=== PATIENT | female | born 1985 | race Caucasian/White ===

== ENCOUNTER 2024-10-26 19:08 | Emergency (ER) | payer OTHER, SELFPAY ==
--- OUTSIDE RECORDS SUMMARY | 2024-10-26 19:10 | XMS_ITS | Encounter Summary ---
Author Organization [facility] Address [facility] [place] [address] Care Team Providers Care Slasher Machine Operator Name Role Phone Manuel Mcnamara MD Primary Care Provider [phone] Encounter Details Date Type Department Care Team (Late st Contact Info) Description 05/08/2021 Outerstufft Message Enc [facility] Family & Internal Medicine [address] [address] Eileen Singh, GRAIN SPOUTER Concern Social History Tobacco Use Types Packs/Day Years Used Date Smoking Tobacco: Former Cigarettes Q uit: 07/2017 Smokeless Tobacco: Never Alcohol Use Standard Drinks/Week Comments No 0 (1 standard drink = 0.6 oz pur e alcohol) AUDIT-C Answer Date Recorded Frequency of Alcohol Consumption Never 07/14/2020 Average Number of Drinks Not on file 021 Frequency of Binge Drinking Not on file 06/23 PHQ-2 Answer Date Recorded PHQ-2 Score - If the patient scores above 3, please move on to questions 3-9 2 05/07/2021 Comments No Sex and Gender Information Value Date Recorded Sex Assigned at Female 06/13/2024 11:52 AM GUN EXAMINER Legal Sex Female 8:24 PM CDT Gender Identity Female 08/09/2024 2:50 PM CDT Sexual Orientation Not on file COVID-19 Exposure Response Date Recorded In the last month, have you been in contact with someone who was confirmed or suspected to have Coronavirus / COVID-19? No / Unsure 05/07/2021 8:38 AM GUN EXAMINER documented as of this encounter Functional Status * RETIRED Are you deaf or do you have serious difficulty hearing Answer Date of Assessment Author Status No 10/11/2018 8:28 AM CDT Activ e * RETIRED Are you blind or do you have serious difficulty seeing, even when wearing glasses? Answer Date of Assessment Author Status No 10/11/2018 8:28 AM CDT Activ e * Do you have serious difficulty walking or climbing stairs? Answer Date of Assessment Author Status No 10/11/2018 8:28 AM Erin Tejada RN Active * Do you have difficulty dressing or bathing? Answer Date of Assessment Author Status No 10/11/2018 8:28 AM Erin Tejada RN Active * Because of a physical, mental, or emotional condition, do you have difficulty doing errands alone such as visiting a doctor's office or shopping? Answer Date of Assessment Author Status No 10/11/2018 8:28 AM Erin Tejada RN Active documented as of this encounter Mental Status * Because of a physical, mental, or emotional condition, do you have serious difficulty concentrating, remembering, or making decisions? Answer Entry Date Author Status No 10/11/2018 8:28 AM Erin Tejada RN Active documented in this encounter Plan of Treatment Not on file documented as of this encounter Visit Diagnoses Not on filedocumented in this encounter Additional Health Concerns Infection Onset Date Last Indicated Resolved Time C. difficile 05/13/2018 05/13/2018 ESBL - Extended Spectrum Beta-lactamase 05/13/2018 05/13/2018 VRE 05/13/2018 05/13/2018 MRSA 05/13/2018 05/13/2018 COVID-19 Rule Out 05/23/2023 05/23/2023 05/23/2023 12:01 PM GUN EXAMINER COVID-19 Rule Out 06/22/2024 06/22/2024 06/22/2024 12:24 PM GUN EXAMINER Respiratory Rule Out 06/22/2024 06/22/2024 025 12:12 PM GUN EXAMINER Assessment Noted Time PHQ-9 Depression Total Score: 2 05/07/19 22 8:56 AM GUN EXAMINER documented as of this encounter Care Teams Slasher Machine Operator Relationship Specialty [place] [address] [place] [address] PCP - General FAMILY PRACTICE 05/30/18 documented as of this encounter
[2024-10-26 19:11] VITALS: BP 135/87; PULSE 86; RESP 20; TEMP 36.7; O2SAT 97
--- OUTSIDE RECORDS SUMMARY | 2024-10-26 19:11 | XMS_ITS | Encounter Summary ---
Author Organization [facility] Address [facility] [place] [address] Care Team Providers Care Automotive Center Manager Name Role Phone Manuel Mcnamara MD Primary Care Provider [phone] Encounter Details Date Type Department Care Team (Late st Contact Info) Description 05/12/2023 NaiKun Wind Developmentt Message Enc [facility] Medical Group Family & Internal Medicine [facility] [address] [place] [phone] [place] [id number] [place] [address] Medical Social History Tobacco Use Types Packs/Day Years Used Date Smoking Tobacco: Former Cigarettes Q uit: 07/23/2017 Smokeless Tobacco: Never Alcohol Use Standard Drinks/Week Comments No 0 (1 standard drink = 0.6 oz pur e alcohol) AUDIT-C Answer Date Recorded Frequency of Alcohol Consumption Never 07/14/2020 Average Number of Drinks Not on file 021 Frequency of Binge Drinking Not on file 06/23 PHQ-2 Answer Date Recorded Patient Health Questionnaire-2 Score 6 09/13/2022 Comments No Sex and Gender Information Value Date Recorded Sex Assigned at Female 06/13/2024 11:52 AM LAMINATION SPINNER Legal Sex Female 8:24 PM CDT Gender Identity Female 08/09/2024 2:50 PM CDT Sexual Orientation Not on file documented as of this encounter Functional Status [...] Author Status No 10/11/2018 8:28 AM CDT Erin Reece RN Active * Do you have difficulty dressing or bathing? Answer Date of Assessment Author Status No 10/11/2018 8:28 AM CDT Erin Reece RN Active * Because of a physical, mental, or emotional condition, do you have difficulty doing errands alone such as visiting a doctor's office or shopping? Answer Date of Assessment Author Status No 10/11/2018 8:28 AM SUMANT Erin Reece RN Active documented as of this encounter Mental Status * Because of a physical, mental, or emotional condition, do you have serious difficulty concentrating, remembering, or making decisions? Answer Entry Date Author Status No 10/11/2018 8:28 AM CDT Erin Reece RN Active documented in this encounter Plan of Treatment Not on file documented as of this encounter Visit Diagnoses Not on filedocumented in this encounter Additional Health Concerns Infection Onset Date Last Indicated Resolved Time C. difficile 05/13/2018 05/13/2018 ESBL - Extended Spectrum Beta-lactamase 05/13/2018 05/13/2018 VRE 05/13/2018 05/13/2018 MRSA 05/13/2018 05/13/2018 COVID-19 Rule Out 05/23/2023 05/23/2023 05/23/2023 12:01 PM LAMINATION SPINNER COVID-19 Rule Out 06/22/2024 06/22/2024 06/22/2024 12:24 PM LAMINATION SPINNER Respiratory Rule Out 06/22/2024 06/22/2024 025 12:12 PM LAMINATION SPINNER Assessment Noted Time PHQ-9 Depression Total Score: 21 023 1:22 PM CDT documented as of this encounter Care Teams Automotive Center Manager Relationship Specialty [place] [address] [place] [address] PCP - General FAMILY PRACTICE 05/30/18 documented as of this encounter
--- OUTSIDE RECORDS SUMMARY | 2024-10-26 19:11 | XMS_ITS | Clinical Summary ---
Author Organization [facility] Address [address] [place] [address] Care Team Providers Care Refrigerator Car Icer Name Role Phone Goldie Mcnamara MD Primary Care Provider [phone] Allergies Active Allergy Reactions Criticality Noted Date Comments Zeoxmafmc-Rsbbwzoanl-Qm-Apap Palpitations,Redness Low 03/30/2012 Sxkeghnxkygacfn-Wt-Vd-Apap Palpitations,Redness Low 03/30/2012 Medications sertraline (ZOLOFT) 100 MG tabletIndication s:Recurrent major depressive disorder, in partial remission,Severe anxiety Take 1 tablet (100 mg total) by mouth daily. 90 tablet 1 5 Active hydrocortisone 2.5 % cream Apply topically 2 (two) times daily. 3.5 g 5 Active celecoxib (CELEBREX) 200 MG capsuleIndicatio ns:Pain of right heel Take 1 capsule (200 mg total) by mouth daily. 30 capsule 2 5 Active omeprazole (PRILOSEC) 20 MG capsuleIndicatio ns:Gastroesophag eal reflux disease without esophagitis Take 1 capsule (20 mg total) by mouth 2 (two) times daily. 180 capsule 1 5 Active hydrocortisone 2.5 % cream Apply topically 2 (two) times daily. 28 g 5 Active Active Problems Problem Noted Date Diagnosed Date Moderately severe depression 05/24/2022 Cervical muscle pain 03/01/2022 Obesity (BMI 30-39.9) 12/24/2021 Gastroesophageal reflux disease without esophagi tis 12/24/2021 Severe anxiety 11/20/2021 Recurrent major depressive disorder, in partial remission 11/20/2021 Overweight (BMI 25.0-29.9) 11/09/2021 Vaginal delivery ([facility]) 10/11/2018 Resolved Problems Problem Noted Date Diagnosed Date Resolved Date ([facility]) 10/11/2018 10/13/19 19 Encounters Date Type Department Care Team Description 09/07/2024 6:05 PM CDT - 09/07/2024 6:46 PM CDT Emergency [facility] Emergency Room [address] [place] [address] Zara De MD Rash Discharge Disposition: Home or Self Care (Routine Discharge) 09/07/2024 Travel 08/13/2024 Telephone [facility] [address] [phone] Goldie Mcnamara MD Medication Information 08/12/2024 Orders Only [facility] [address] [phone] Goldie Mcnamara MD 08/09/2024 3:30 PM CDT - 08/09/2024 11:59 PM CDT Hospital Encounter [facility] [address] [place] [address] Goldie Mcnamara MD Discharge Disposition: Home or Self Care (Routine Discharge) 08/09/2024 3:00 PM CDT Office Visit [facility] [address] [phone] Goldie Mcnamara MD Foot Pain 08/09/2024 Results Follow-Up [address] [phone] Goldie Mcnamara MD XR HEEL RT MIN 2V 08/09/2024 Travel 07/30/2024 7:09 PM CDT - 07/30/2024 7:37 PM CDT Emergency [facility] Emergency Room [address] [place] [address] Chris Kamara MD Derm Problem Discharge Disposition: Home or Self Care (Routine Discharge) 07/30/2024 Travel from Last 3 Months Immunizations Immunization Administration Dates Next Due Dtap (Generic) 06/24/2018 Fluzone 6 Months+ Quad (0.5 mL Prefilled Syringe) 03/10/2021,03/10/2020,02/14/2019 Influenza Adult (Generic) 02/14/2019 Opv 08/16/1994 PFIZER COVID-19 (ORIGINAL FO RMULATION, PURPLE CAP) mRNA, LNP-S, PF, 30 MCG/0.3 ML DOSE 11/09/2020,10/19/2020 Tdap (Generic) 06/24/2018,02/09/2010 Family History Medical History Relation Comments Diabetes Father Hyperlipidemia Father Hypertension Father Hyperlipidemia Mother Relation Status Comments Father Mother Alive Social History Tobacco Use Types Packs/Day Years Used Date Smoking Tobacco: Former Cigarettes Q uit: 07/23/2017 Passive Smoke Exposure: Past Smokeless Tobacco: Never Tobacco Cessation:Counseling Given: No Alcohol Use Standard Drinks/Week Comments No 0 (1 standard drink = 0.6 oz pur e alcohol) AUDIT-C Answer Date Recorded Frequency of Alcohol Consumption Never 07/14/2020 Average Number of Drinks Not on file 021 Frequency of Binge Drinking Not on file 06/23 PHQ-2 Answer Date Recorded Patient Health Questionnaire-2 Score 0 08/09/2024 Comments No Sex and Gender Information Value Date Recorded Sex Assigned at Female 06/13/2024 11:52 AM CLERICAL CLERK Legal Sex Female 8:24 PM CDT Gender Identity Female 08/09/2024 2:50 PM CDT Sexual Orientation Not on file Last Filed Vital Signs Vital Sign Reading Time Taken Comments Blood Pressure 126/74 09/07/2024 6:12 PM CDT Pulse 77 09/07/2024 6:12 PM CDT Temperature 36.7 C (98 F) 09/07/2024 6:12 PM CDT Respiratory Rate 18 09/07/2024 6:12 PM CDT Oxygen Saturation 99% 09/07/2024 6:12 PM CDT Inhaled Oxygen Concentration - - Weight 73 kg (161 lb) 09/07/2024 6:12 PM CDT Height 157.5 cm (5' 2) 09/07/2024 6:12 PM CDT Body Mass Index 29.45 09/07/2024 6:12 PM CDT Plan of Treatment Health Maintenance Due Date Last Done Comments Cervical Cancer Screening Pa p Smear (Age 30 to 64) Every 3 Years 1984 Hepatitis C 2002 Hepatitis B Vaccines (1 of 3 - 19+ 3-dose series) 08/30/2003 Cervical Cancer Screening Pa p with HPV Testing (Age 30 to 64) Every 5 Years 2014 Cervical Cancer Screening wi th HPV 2014 Annual Physical 05/07/2022 05/07/2021 COVID-19 Vaccine (3 - 2023-2 5 season) 2023 11/09/2020, 10/19/2020 Mammogram Screening 2024 DTaP, Tdap and Td Vaccines ( 4 - Td or Tdap) 06/24/2028 06/24/2018, 06/24/2018, 02/09/2010 PHQ-2 (Physician Pilgrim) Completed 08/09/2024 HPV Vaccines Aged Out No longer eligi ble based on patient's age to complete this topic Meningococcal B Vaccine Aged Out No l onger eligible based on patient's age to complete this topic Meningococcal Vaccine Aged Out No levon nolberto eligible based on patient's age to complete this topic Pneumococcal Vaccine: Pediatrics (0 to 5 Years) and At-Risk Patients (6 to 49 Years) Aged Out No longer eligible b ased on patient's age to complete this topic RSV Immunizations Under 20 Months Aged Out No longer eligible b ased on patient's age to complete this topic Procedures Procedure Name Priority Date/Time Associated Diagnosis Comments XR HEEL RT MIN 2V Routine 08/09/2024 3:4 0 PM CDT Pain of right heel from Last 3 Months Results * XR HEEL RT MIN 2V (08/09/2024 3:40 PM CDT) Anatomical Region Laterality Modality Foot Radiographic Trinh ging 08/09/2024 3:50 PM CDT Impressions 08/09/2024 3:51 PM CDT IMPRESSION: No acute abnormality identified. Ordered By: GOLDIE MCNAMARA Interpreted By: Maciej Self MD, 08/09/2024 3:50 PM Narrative 08/09/2024 3:51 PM CDT [facility] [address] [place] [address] Examination: XR HEEL RT MIN 2V Exam time: 08/09/2024 3:35 PM Clinical history: Medial heel pain for 6 months. No known injury. Comparison: No prior exam Technique: Axial lateral views Findings: Tibiotalar and subtalar joints appear unremarkable. No evidence of fracture or acute osseous abnormality involving the calcaneus. Minimal plantar calcaneal enthesophyte. No evidence of abnormal soft tissue densities. Procedure Note Maciej Self MD - 08/09/2024 [facility] [address] [place] [address] Examination: XR HEEL RT MIN 2V Exam time: 08/09/2024 3:35 PM Clinical history: Medial heel pain for 6 months. No known injury. Comparison: No prior exam Technique: Axial lateral views Findings: Tibiotalar and subtalar joints appear unremarkable. No evidenceof fracture or acute osseous abnormality involving the calcaneus. Minimalplantar calcaneal enthesophyte. No evidence of abnormal soft tissuedensities. IMPRESSION: No acute abnormality identified. Ordered By: GOLDIE MCNAMARA Interpreted By: Maciej Self MD, 08/09/2024 3:50 PM us Goldie Mcnamara MD GENERAL IMAGING Final Resul t from Last 3 Months Additional Health Concerns Infection Onset Date Last Indicated C. difficile 05/13/2018 05/13/2018 ESBL - Extended Spectrum Beta-lactamase 05/13/19 19 05/13/2018 VRE 05/13/2018 05/13/2018 MRSA 05/13/2018 05/13/2018 Insurance [employer] Care Teams Refrigerator Car Icer Relationship Specialty [place] [address] [place] [address] PCP - General FAMILY PRACTICE 05/30/18
--- OUTSIDE RECORDS SUMMARY | 2024-10-26 19:11 | XMS_ITS | Encounter Summary ---
Author Organization [facility] Address [facility] [place] [address] Care Team Providers Care Copywriting Intern Name Role Phone Manuel Mcnamara MD Primary Care Provider [phone] Encounter Details Date Type Department Care Team (Late st Contact Info) Description 07/07/2023 MyCBiancaMedt Message Enc [facility] Family & Internal Medicine [facility] [phone] [place] [phone] [place] Mcnamara [place] [id number] [place] [address] Medical Social History Tobacco Use Types Packs/Day Years Used Date Smoking Tobacco: Former Cigarettes Q uit: 07/23/2017 Passive Smoke Exposure: Past Smokeless Tobacco: Never Alcohol Use Standard Drinks/Week Comments No 0 (1 standard drink = 0.6 oz pur e alcohol) AUDIT-C Answer Date Recorded Frequency of Alcohol Consumption Never 07/14/2020 Average Number of Drinks Not on file 021 Frequency of Binge Drinking Not on file 06/23 PHQ-2 Answer Date Recorded Patient Health Questionnaire-2 Score 6 06/23/2023 Comments No Sex and Gender Information Value Date Recorded Sex Assigned at Female 06/13/2024 11:52 AM FEED WEIGHER Legal Sex Female 8:24 PM CDT Gender [...] 05/13/2018 MRSA 05/13/2018 05/13/2018 COVID-19 Rule Out 06/22/2024 06/22/2024 06/22/2024 12:24 PM FEED WEIGHER Respiratory Rule Out 06/22/2024 06/22/2024 025 12:12 PM FEED WEIGHER Assessment Noted Time PHQ-9 Depression Total Score: 024 2:17 PM FEED WEIGHER documented as of this encounter Care Teams Copywriting Intern Relationship Specialty [place] [address] [place] [address] PCP - General FAMILY PRACTICE 05/30/18 documented as of this encounter
--- OUTSIDE RECORDS SUMMARY | 2024-10-26 19:11 | XMS_ITS | Encounter Summary ---
Author Organization [facility] Address Replaced by [facility] [place] [address] Care Team Providers Care Power Truck Driver Name Role Phone Manuel Mcnamara MD Primary Care Provider [phone] Encounter Details Date Type Department Care Team (Late st Contact Info) Description 06/21/2024 MyCLightspeed Audio Labst Message Enc [facility] Medical Group Family & Internal Medicine [facility] [address] [place] [phone] Manuel Mcnamara [place] [id number] [place] [address] Influenza A Social History Tobacco Use Types Packs/Day Years [...] Sex Assigned at Female 06/13/2024 11:52 AM FLATTENING MACHINE OPERATOR Legal Sex Female 8:24 PM CDT Gender [...] 8:28 AM Erin Tejada RN Active * Calculated C-SSRS Risk Score (Lifetime/Recent) Answer Date of Assessment Author Status No Risk Indicated 06/22/2024 11:34 AM Sarah Martinez RN Active * Alexander Suicide Severity Rating Scale (Screener/Recent Self-Report) Question Answer Date of Assessment Author Status 1. Wish to be (Past 1 Month) No 06/22/2024 11:34 AM Sushila Martinez RN Acti ve 2. Non-Specific Active Suicidal Thoughts (Past 1 Month) No 06/22/2024 11:34 AM Sushila Martinez RN Acti ve 6. Suicidal Behavior (Lifetime) No 06/22/2024 11:34 AM Sushila Martinez RN Acti ve documented as of this encounter Mental Status [...] Rule Out 06/22/2024 06/22/2024 06/22/2024 12:24 PM FLATTENING MACHINE OPERATOR Respiratory Rule Out 06/22/2024 06/22/2024 025 12:12 PM FLATTENING MACHINE OPERATOR Assessment Noted Time PHQ-9 Depression Total Score: 20 024 2:17 PM FLATTENING MACHINE OPERATOR documented as of this encounter Care Teams Power Truck Driver Relationship Specialty [place] [address] [place] [address] PCP - General FAMILY PRACTICE 05/30/18 documented as of this encounter
--- OUTSIDE RECORDS SUMMARY | 2024-10-26 19:11 | XMS_ITS | Encounter Summary ---
Author Organization [facility] Address [facility] [place] [address] Care Team Providers Care Wedger Machine Name Role Phone Manuel Mcnamara MD Primary Care Provider [phone] Encounter Details Date Type Department Care Team (Late st Contact Info) Description 11/06/2023 MyCopenPeoplet Message Enc [facility] Medical Group Family & Internal Medicine [facility] [id number] [place] [phone] [place]namara [place] [id number] [place] [address] Oral infection Social History Tobacco Use Types Packs/Day Years [...] Sex Assigned at Female 06/13/2024 11:52 AM DIRECTOR FIXED INCOME Legal Sex Female 8:24 PM CDT Gender [...] AM CDT Erin Reece RN Active documented as of this encounter Mental Status * Because of a physical, mental, or emotional condition, do you have serious difficulty concentrating, remembering, or making decisions? Answer Entry Date Author Status No 10/11/2018 8:28 AM CDT Erin Reece RN Active documented in this encounter Progress Notes * Genna Davila MA - 11/06/2023 3:14 PM CDT Printed to discuss with dr documented in this encounter Plan of Treatment Not on file documented as of this encounter Visit Diagnoses Not on filedocumented in this encounter Additional Health Concerns Infection Onset Date Last Indicated Resolved Time C. difficile 05/13/2018 05/13/2018 ESBL - Extended Spectrum Beta-lactamase 05/13/2018 05/13/2018 VRE 05/13/2018 05/13/2018 MRSA 05/13/2018 05/13/2018 COVID-19 Rule Out 06/22/2024 06/22/2024 06/22/2024 12:24 PM DIRECTOR FIXED INCOME Respiratory Rule Out 06/22/2024 06/22/2024 025 12:12 PM DIRECTOR FIXED INCOME Assessment Noted Time PHQ-9 Depression Total Score: 20 024 2:17 PM DIRECTOR FIXED INCOME documented as of this encounter Care Teams Wedger Machine Relationship Specialty [place] [address] [place] [address] PCP - General FAMILY PRACTICE 05/30/18 documented as of this encounter
--- OUTSIDE RECORDS SUMMARY | 2024-10-26 19:11 | XMS_ITS | Encounter Summary ---
Author Organization [facility] Address [facility] [place] [address] Care Team Providers Care Dormitory Keeper Name Role Phone Manuel Mcnamara MD Primary Care Provider [phone] Encounter Details Date Type Department Care Team (Late st Contact Info) Description 05/09/2021 Octaviant Message Enc [facility] Medical Group Family & Internal Medicine [address] [phone] Eileen Singh, TYESHA Concerned Social History Tobacco Use Types Packs/Day Years [...] Sex Assigned at Female 06/13/2024 11:52 AM DEVOPS DEVELOPER Legal Sex Female 8:24 PM CDT Gender Identity Female 08/09/2024 2:50 PM CDT Sexual Orientation Not on file COVID-19 Exposure Response Date Recorded In the last month, have you been in contact with someone who was confirmed or suspected to have Coronavirus / COVID-19? No / Unsure 05/07/2021 8:38 AM DEVOPS DEVELOPER documented as of this encounter Functional Status [...] Rule Out 05/23/2023 05/23/2023 05/23/2023 12:01 PM DEVOPS DEVELOPER COVID-19 Rule Out 06/22/2024 06/22/2024 06/22/2024 12:24 PM DEVOPS DEVELOPER Respiratory Rule Out 06/22/2024 06/22/2024 025 12:12 PM DEVOPS DEVELOPER Assessment Noted Time PHQ-9 Depression Total Score: 2 05/07/19 22 8:56 AM DEVOPS DEVELOPER documented as of this encounter Care Teams Dormitory Keeper Relationship Specialty [place] [address] [place] [address] PCP - General FAMILY PRACTICE 05/30/18 documented as of this encounter
--- OUTSIDE RECORDS SUMMARY | 2024-10-26 19:11 | XMS_ITS | Encounter Summary ---
Author Organization [facility] Address [facility] [place] [address] Care Team Providers Care Clutch Specialist Name Role Phone Manuel Mcnamara MD Primary Care Provider [phone] Encounter Details Date Type Department Care Team (Late st Contact Info) Description 08/12/2022 Extremis Technologyt Message Enc [facility] Medical Group Family & Internal Medicine [facility] [address] [place] [phone] Vanessa Quarles, TYESHA [address] [facility] [address] [facility] [place] [address] Concern Social History Tobacco Use Types Packs/Day [...] Answer Date Recorded Patient Health Questionnaire-2 Score 5 08/15/2022 Comments No Sex and Gender Information Value Date Recorded Sex Assigned at Female 06/13/2024 11:52 AM PRACTICE SUPPORT SPECIALIST Legal Sex Female 8:24 PM CDT Gender Identity Female 08/09/2024 2:50 PM CDT Sexual Orientation Not on file COVID-19 Exposure Response Date Recorded In the last 10 days, have yo u been in contact with someone who was confirmed or suspected to have Coronavirus/COVID-19? No / Unsure 08/15/2022 12:47 PM CDT documented as of this encounter Functional Status [...] AM CDT Erin Reece RN Active * Over the past 2 weeks, how often have you been bothered by any of the following problems? Question Answer Date of Assessment Author Status Little interest or pleasure in doing things More than half the days 08/15/2022 1:10 PM CDT Bravo Chan MA Active Feeling down, depressed, or hopeless Nearly every day 08/15/2022 1:10 PM CDT Bravo Chan MA Active Patient Health Questionnaire-2 Score 5 08/15/2022 1:10 PM CDT Bravo Chan MA Active * Question Answer Date of Assessment Author Status Trouble falling or staying asleep, or sleeping too much Nearly every day 08/15/2022 1:10 PM CDT Bravo Chan MA Active Feeling tired or having little energy Nearly every day 08/15/2022 1:10 PM CDT Bravo Chan MA Active Poor appetite or overeating More than half the days 08/15/2022 1:10 PM CDT Bravo Chan MA Active Feeling bad about yourself - or that you are a failure or have let yourself or your family down Nearly every day 08/15/2022 1:10 PM Bravo Man MA Active Trouble concentrating on things, such as reading the newspaper or watching television Not at all 08/15/2022 1:10 PM Bravo Man MA Active Moving or speaking so slowly that other people could have noticed? Or the opposite - being so fidgety or restless that you have been moving around a lot more than usual. More than half the days 08/15/2022 1:10 PM Bravo Man MA Active Thoughts that you would be better off or hurting yourself in some way Not at all 08/15/2022 1:10 PM Bravo Man MA Active Patient Health Questionnaire-9 Score 18 08/15/2022 1:10 PM Bravo Man MA Active * If you checked off any problems on this questionnaire so far, Question Answer Date of Assessment Author Status How difficult have these problems made it for you to do your work, take care of things at home, or get along with other people? Very difficult 08/15/2022 1:10 PM Bravo Man MA Active documented as of this encounter Mental [...] Rule Out 05/23/2023 05/23/2023 05/23/2023 12:01 PM PRACTICE SUPPORT SPECIALIST COVID-19 Rule Out 06/22/2024 06/22/2024 06/22/2024 12:24 PM PRACTICE SUPPORT SPECIALIST Respiratory Rule Out 06/22/2024 06/22/2024 025 12:12 PM PRACTICE SUPPORT SPECIALIST Assessment Noted Time PHQ-9 Depression Total Score: 19 023 9:12 AM PRACTICE SUPPORT SPECIALIST documented as of this encounter Care Teams Clutch Specialist Relationship Specialty [place] [address] [place] [address] PCP - General FAMILY PRACTICE 05/30/18 documented as of this encounter
--- OUTSIDE RECORDS SUMMARY | 2024-10-26 21:04 | XMS_ITS | Encounter Summary ---
Author Organization [facility] Address [facility] [place] [address] Care Team Providers Care Longwall Headgate Operator Name Role Phone Manuel Mcnamara MD Primary Care Provider [phone] Encounter Details Date Type Department Care Team (Late st Contact Info) Description 08/12/2022 Symplert Message Enc [facility] Medical Group Family & Internal Medicine [facility] [phone] [place] [phone] Vanessa Quarles, TYESHA [address] [facility] [address] [facility] [place] [address] Concern Social History Tobacco Use [...] Sex Assigned at Female 06/13/2024 11:52 AM BRIDGE OPENER Legal Sex Female 8:24 PM CDT Gender [...] Rule Out 05/23/2023 05/23/2023 05/23/2023 12:01 PM BRIDGE OPENER COVID-19 Rule Out 06/22/2024 06/22/2024 06/22/2024 12:24 PM BRIDGE OPENER Respiratory Rule Out 06/22/2024 06/22/2024 025 12:12 PM BRIDGE OPENER Assessment Noted Time PHQ-9 Depression Total Score: 19 023 9:12 AM BRIDGE OPENER documented as of this encounter Care Teams Longwall Headgate Operator Relationship Specialty [place] [address] [place] [address] PCP - General FAMILY PRACTICE 05/30/18 documented as of this encounter
--- OUTSIDE RECORDS SUMMARY | 2024-10-26 21:04 | XMS_ITS | Encounter Summary ---
Author Organization [facility] Address [facility] [place] [address] Care Team Providers Care Director Of People Name Role Phone Manuel Mcnamara MD Primary Care Provider [phone] Encounter Details Date Type Department Care Team (Late st Contact Info) Description 05/08/2021 Anket Message Enc [facility] Medical Group Family & Internal Medicine [address] [phone] Eileen Singh, FOUR ROLL CALENDER OPERATOR Concern Social History Tobacco Use Types Packs/Day [...] Sex Assigned at Female 06/13/2024 11:52 AM VAT PACKER Legal Sex Female 8:24 PM CDT Gender Identity Female 08/09/2024 2:50 PM CDT Sexual Orientation Not on file COVID-19 Exposure Response Date Recorded In the last month, have you been in contact with someone who was confirmed or suspected to have Coronavirus / COVID-19? No / Unsure 05/07/2021 8:38 AM VAT PACKER documented as of this encounter Functional Status [...] Rule Out 05/23/2023 05/23/2023 05/23/2023 12:01 PM VAT PACKER COVID-19 Rule Out 06/22/2024 06/22/2024 06/22/2024 12:24 PM VAT PACKER Respiratory Rule Out 06/22/2024 06/22/2024 025 12:12 PM VAT PACKER Assessment Noted Time PHQ-9 Depression Total Score: 2 05/07/19 22 8:56 AM VAT PACKER documented as of this encounter Care Teams Director Of People Relationship Specialty [place] [address] [place] [address] PCP - General FAMILY PRACTICE 05/30/18 documented as of this encounter
--- OUTSIDE RECORDS SUMMARY | 2024-10-26 21:04 | XMS_ITS | Encounter Summary ---
Author Organization [facility] Address [facility] [place] [address] Care Team Providers Care Nurse Substance Abuse Name Role Phone Manuel Mcnamara MD Primary Care Provider [phone] Encounter Details Date Type Department Care Team (Late st Contact Info) Description 05/09/2021 Coinsettert Message Enc [facility] Medical Group Family & Internal Medicine [address] [phone] Eileen Singh, TYESHA Concerned Social [...] Sex Assigned at Female 06/13/2024 11:52 AM CPAS Legal Sex Female 8:24 PM CDT Gender Identity Female 08/09/2024 2:50 PM CDT Sexual Orientation Not on file COVID-19 Exposure Response Date Recorded In the last month, have you been in contact with someone who was confirmed or suspected to have Coronavirus / COVID-19? No / Unsure 05/07/2021 8:38 AM CPAS documented as of this encounter Functional Status [...] Rule Out 05/23/2023 05/23/2023 05/23/2023 12:01 PM CPAS COVID-19 Rule Out 06/22/2024 06/22/2024 06/22/2024 12:24 PM CPAS Respiratory Rule Out 06/22/2024 06/22/2024 025 12:12 PM CPAS Assessment Noted Time PHQ-9 Depression Total Score: 2 05/07/19 22 8:56 AM CPAS documented as of this encounter Care Teams Nurse Substance Abuse Relationship Specialty [place] [address] [place] [address] PCP - General FAMILY PRACTICE 05/30/18 documented as of this encounter
--- OUTSIDE RECORDS SUMMARY | 2024-10-26 21:05 | XMS_ITS | Encounter Summary ---
Author Organization [facility] Address [facility] [place] [address] Care Team Providers Care Note Teller Name Role Phone Manuel Mcnamara MD Primary Care Provider [phone] Encounter Details Date Type Department Care Team (Late st Contact Info) Description 07/07/2023 [email or web address] Message Enc [facility] Medical Group Family & Internal Medicine [facility] [phone] [place] [phone] Manuel Mcnamara [place] [id number] [place] [address] Medical Social History Tobacco Use Types [...] Sex Assigned at Female 06/13/2024 11:52 AM MUD TANK OPERATOR Legal Sex Female 8:24 PM CDT [...] Rule Out 06/22/2024 06/22/2024 06/22/2024 12:24 PM MUD TANK OPERATOR Respiratory Rule Out 06/22/2024 06/22/2024 025 12:12 PM MUD TANK OPERATOR Assessment Noted Time PHQ-9 Depression Total Score: 024 2:17 PM MUD TANK OPERATOR documented as of this encounter Care Teams Note Teller Relationship Specialty [place] [address] [place] [address] PCP - General FAMILY PRACTICE 05/30/18 documented as of this encounter
--- OUTSIDE RECORDS SUMMARY | 2024-10-26 21:05 | XMS_ITS | Clinical Summary ---
Author Organization [facility] Address [address] [place] [address] Care Team Providers Care Chromosomal Disorders Counselor Name Role Phone Goldie Mcnamara MD Primary Care Provider [phone] Allergies Active Allergy Reactions Criticality Noted Date Comments Omtvihxqy-Fkquzzsrpw-Zb-Apap Palpitations,Redness Low 03/30/2012 Vnrrbrwhcgbjqga-Cz-Tk-Apap Palpitations,Redness Low 03/30/2012 Medications sertraline (ZOLOFT) 100 [...] 11/20/2021 Overweight (BMI 25.0-29.9) 11/09/2021 Vaginal delivery ([facility]) 10/11/2018 Resolved Problems Problem Noted Date Diagnosed Date Resolved Date ([facility] 10/11/2018 10/13/19 19 Encounters Date Type Department Care Team Description 09/07/2024 6:05 PM CDT - 09/07/2024 6:46 PM CDT Emergency [facility] Emergency Room [address] [place] [address] Zara De MD Rash Discharge Disposition: Home or Self Care (Routine Discharge) 09/07/2024 Travel 08/13/2024 Telephone [facility] [address] [phone] Goldie Mcnamara MD Medication Information 08/12/2024 Orders Only [facility] [address] [phone] Goldie Mcnamara MD 08/09/2024 3:30 PM CDT - 08/09/2024 11:59 PM CDT Hospital Encounter [facility] Diagnostic Imaging [address] [place] [address] Goldie Mcnamara MD Discharge Disposition: Home or Self Care (Routine Discharge) 08/09/2024 3:00 PM CDT Office Visit [facility] [address] [phone] Goldie Mcnamara MD Foot Pain 08/09/2024 Results Follow-Up [address] [phone] Goldie Mcnamara MD XR HEEL RT MIN 2V 08/09/2024 Travel 07/30/2024 7:09 PM CDT - 07/30/2024 7:37 PM CDT Emergency [facility] Emergency Room [address] [place] [address] Chris Kamara MD Derm Problem Discharge Disposition: [...] Sex Assigned at Female 06/13/2024 11:52 AM CABANA ATTENDANT Legal Sex Female 8:24 PM CDT Gender [...] Tdap) 06/24/2028 06/24/2018, 06/24/2018, 02/09/2010 PHQ-2 (Physician [place]) Completed 08/09/2024 HPV Vaccines Aged Out No [...] 3:50 PM Narrative 08/09/2024 3:51 PM CDT [facility] [address] [place] [address] Examination: XR HEEL RT MIN 2V Exam [...] Procedure Note Maciej Self MD - 08/09/2024 [facility] [address] [place] [address] Examination: XR HEEL RT MIN 2V Exam [...] MRSA 05/13/2018 05/13/2018 Insurance [employer] Care Teams Chromosomal Disorders Counselor Relationship Specialty [place] [address] [place] [address] PCP - General FAMILY PRACTICE 05/30/18
--- OUTSIDE RECORDS SUMMARY | 2024-10-26 21:05 | XMS_ITS | Encounter Summary ---
Author Organization [facility] Address [facility] [place] [address] Care Team Providers Care Die Finisher Name Role Phone Manuel Mcnamara MD Primary Care Provider [phone] Encounter Details Date Type Department Care Team (Late st Contact Info) Description 11/06/2023 [email or web address] Message Enc [facility] Medical Group Family & Internal Medicine [facility] [phone] [place] [phone] Manuel Mcnamara MD [id number] [place] [address] Oral infection Social History Tobacco Use [...] Sex Assigned at Female 06/13/2024 11:52 AM CLINICAL QUALITY ASSURANCE SPECIALIST Legal Sex Female 8:24 PM CDT [...] Rule Out 06/22/2024 06/22/2024 06/22/2024 12:24 PM CLINICAL QUALITY ASSURANCE SPECIALIST Respiratory Rule Out 06/22/2024 06/22/2024 025 12:12 PM CLINICAL QUALITY ASSURANCE SPECIALIST Assessment Noted Time PHQ-9 Depression Total Score: 20 024 2:17 PM CLINICAL QUALITY ASSURANCE SPECIALIST documented as of this encounter Care Teams Die Finisher Relationship Specialty [place] [address] [place] [address] PCP - General FAMILY PRACTICE 05/30/18 documented as of this encounter
--- OUTSIDE RECORDS SUMMARY | 2024-10-26 21:05 | XMS_ITS | Encounter Summary ---
Author Organization [facility] Address [facility] [place] [address] Care Team Providers Care Cognos Bi Developer Name Role Phone Manuel Mcnamara MD Primary Care Provider [phone] Encounter Details Date Type Department Care Team (Late st Contact Info) Description 06/21/2024 MyCBrijot Imaging Systemst Message Enc [facility] Medical Group Family & Internal Medicine [facility] [address] [place] [phone] Manuel Mcnamara [place] [phone] [place] [address] Influenza A Social History Tobacco Use [...] Sex Assigned at Female 06/13/2024 11:52 AM VENEER CUTTER Legal Sex Female 8:24 PM CDT Gender [...] 11:34 AM Sarah Martinez RN Active * Clark Suicide Severity Rating Scale (Screener/Recent Self-Report) Question [...] Rule Out 06/22/2024 06/22/2024 06/22/2024 12:24 PM VENEER CUTTER Respiratory Rule Out 06/22/2024 06/22/2024 025 12:12 PM VENEER CUTTER Assessment Noted Time PHQ-9 Depression Total Score: 20 024 2:17 PM VENEER CUTTER documented as of this encounter Care Teams Cognos Bi Developer Relationship Specialty [place] [address] [place] [address] PCP - General FAMILY PRACTICE 05/30/18 documented as of this encounter
--- OUTSIDE RECORDS SUMMARY | 2024-10-26 21:05 | XMS_ITS | Encounter Summary ---
Author Organization [facility] Address [facility] [place] [address] Care Team Providers Care Professor Of Languages Name Role Phone Manuel Mcnamara MD Primary Care Provider [phone] Encounter Details Date Type Department Care Team (Late st Contact Info) Description 05/12/2023 Act-On Softwaret Message Enc [facility] Medical Group Family & Internal Medicine [facility] [address] [place] [phone] Manuel Mcnamara MD [id number] [place] [address] Medical Social History Tobacco Use Types [...] Sex Assigned at Female 06/13/2024 11:52 AM EXECUTIVE TALENT ACQUISITION CONSULTANT Legal Sex Female 8:24 PM CDT Gender [...] Rule Out 05/23/2023 05/23/2023 05/23/2023 12:01 PM EXECUTIVE TALENT ACQUISITION CONSULTANT COVID-19 Rule Out 06/22/2024 06/22/2024 06/22/2024 12:24 PM EXECUTIVE TALENT ACQUISITION CONSULTANT Respiratory Rule Out 06/22/2024 06/22/2024 025 12:12 PM EXECUTIVE TALENT ACQUISITION CONSULTANT Assessment Noted Time PHQ-9 Depression Total Score: 21 023 1:22 PM CDT documented as of this encounter Care Teams Professor Of Languages Relationship Specialty [place] [address] [place] [address] PCP - General FAMILY PRACTICE 05/30/18 documented as of this encounter
== END 2024-10-26 20:55 | disposition left against medical advice (07) ==
LOC: ANHED 21:03
PROVIDERS: PCP Family Medicine
DX: R22.41 Localized swelling, mass and lump, right lower limb (principal)
CPT/HCPCS: 99199